=== PATIENT | female | born 1950 | race Caucasian/White ===

== ENCOUNTER 2016-09-06 12:12 | Outpatient (CLI) | payer OTHER ==
--- NOTE | 2016-09-06 12:44 | DIAGNOSTIC IMAGING REPORT ---
PROCEDURE: XR CHEST 2 VIEW INDICATION: COUGH TECHNIQUE: PA and lateral views. COMPARISON: None. FINDINGS: Lungs are clear. Heart and mediastinum are normal. Thorax is normal. IMPRESSION: 1. Negative chest.
== END 2016-09-06 23:00 ==
LOC: XR SRH 12:12
DX: R05 Cough (principal)